=== PATIENT | male | born 1970 | race Two or more races ===

== ENCOUNTER → 2024-09-25 15:57 | Outpatient (REF) | payer OTHER, SELFPAY | LOC: HWRCS 15:57 | PROVIDERS: ATTENDING PHYSICIAN Family Medicine | DX: R94.31 Abnormal electrocardiogram [ECG] [EKG] (principal) | CPT/HCPCS: 93306 ==

== ENCOUNTER → 2024-10-01 06:38 | Outpatient (REF) | payer OTHER, SELFPAY ==
[2024-10-01] MEDS: LEXISCAN 0.4 MG IV (08:20)
== END ==
LOC: RCS 06:38
PROVIDERS: ATTENDING PHYSICIAN Internal Medicine Cardiovascular Disease; FAMILY PHYSICIAN Family Medicine
DX: R07.2 Precordial pain (principal); I10 Essential (primary) hypertension
CPT/HCPCS: 78452; 93017; A9500; J2785

== ENCOUNTER → 2024-10-19 09:49 | Outpatient (REF) | payer OTHER, SELFPAY | LOC: RAD 09:49 | PROVIDERS: ATTENDING PHYSICIAN Internal Medicine Cardiovascular Disease | DX: I51.7 Cardiomegaly (principal); I11.9 Hypertensive heart disease without heart failure; I25.118 Atherosclerotic heart disease of native coronary artery with other forms of angina pectoris | CPT/HCPCS: 75574; Q9967 ==